=== PATIENT | male | born 1960 | race Caucasian/White ===

== ENCOUNTER → 2018-05-30 | Outpatient (CLI) | payer BC ==
[2018-05-30 09:26] LABS: BILIRUBIN,TOTAL 0.9 mg/dL (0.0-1.0); CALCIUM 9.4 mg/dL (8.4-10.2); CREATININE, serum 0.93 (0.66-1.25); POTASSIUM 4.6 mmol/L (3.4-5.0); TOTAL PROTEIN 6.9 gm/dL (6.4-8.2)
== END ==
LOC: COL.LAB 08:39
DX: M62.82 Rhabdomyolysis (principal)

== ENCOUNTER → 2018-10-16 | Outpatient (CLI) | payer BC | LOC: COL.RAD 10:12 | DX: R22.0 Localized swelling, mass and lump, head (principal) ==